=== PATIENT | female | born 1950 | race Caucasian/White ===

== ENCOUNTER 2017-04-09 13:06 | Inpatient (IN) | payer OTHER, MEDICAID ==
[2017-04-09 13:43] VITALS: BMI 15.4
--- NOTE | 2017-04-09 14:19 | DR.GENAD ---
HPI - HPI Comment HPI Comment: PATIENT TREATED OUT PATIENT WITH ANTIBIOTICS, COUGH MED AND STERIODS, GETTING WORSE. USES OXYGEN AT HOME. - Complaint/Symptoms Chief Complaint Doctors Comments: INCREASING SOB THAT IS GETTING WORSE AND FAIL OUT PATIENT THERAPY. Chief Complaint:: NOT BEING ABLE TO BREATH. SINCE THE FIRST OF THE MONTH, HAS SEEN HER PMD AND TREATED BUT STATES SHE IS NOT BETTER. HAS A CONGESTED COUGH Self Treatment fo Chief Complaint: USES HOME O2 AT NIGHT AND WHEN SHE IS SLEEPING - Nurses notes reviewed Nurses Notes Review: Yes - Source History Provided: Patient - Mode of Arrival Mode of Arrival: Ambulatory - Timing Onset of Chief Complaint: 03/19/17 Came on: Gradually - Duration Duration: Constant Duration: Weeks - Severity Severity: Moderate PMH - PMH Past Medical History: Yes Past Medical History: Anxiety, Arthritis, Asthma, CHF, COPD, Depression, Seizures Past Surgical History: Yes Past Surgical History Comment: CATARACTS - Family History History of Family Medical Conditions: Yes Family Medical History: Diabetes Mellitus, Cancer, [place], Coronary Artery Disease, Hypertension - Social History Does patient currently use any type of tobacco product: Yes Type of Tobacco Use: Cigarettes Does any household member use tobacco: No Alcohol Use: None Do you use any recreational Drugs:: No Lives With: Family Lives Where: Home - infectious screening In the last 2 months have you had wt loss of >10#?: NO Have you had fever, night sweats or hemotysis?: No Have you traveled outside the country in the last 6 months?: No Isolation: Standard ROS - Review of Systems Constitutional: Fever, Weakness, Fatigue, Loss of Appetite. negative: Chills Eyes: No Symptoms Reported. negative: Eye Pain, Discharge ENTM: Nose Congestion, Throat Pain. negative: Ear Pain, Nose Discharge Respiratoy: Productive Cough, Short of Breath, Wheezing. negative: Hemoptysis Cardiovascular: Chest Pain Gastrointestinal/Abdominal: Nausea. negative: Constipation, Diarrhea, Vomiting Genitourinary: negative: Dysuria, Frequency, Hematuria Neurological: Headache, Weakness, Dizziness Musculoskeletal: Back Pain, Muscle Pain Integumentary: Change in Color Hematologic/Lymphatic: Easy Bleeding, Easy Bruising Endocrine: No Symptoms Reported All Other Systems: Reviewed and Negative PE - Vital Signs Vitals: Temperature 98.0 F Pulse Rate 86 Respiratory Rate 28 Blood Pressure 96/58 O2 Sat by Pulse Oximetry 92 - General Limitations: No Limitations General Appearance: Alert, In Distress - Head Head Exam: Normal Inspection - Eyes Eye exam: Normal Appearance, PERRL, EOMI. negative: Scleral Icterus, Conjunctival Injection - ENT ENT Exam: Normal Oropharynx, Normal External Ear Exam, Mucous Membranes Moist, TM's Normal Bilaterally External Ear Exam: Normal External Inspection TM/Canal Exam: Bilateral Normal Nose Exam: Normal Nose Exam Mouth Exam: Normal Inspection Throat Exam: Normal Inspection - Neck Neck Exam: Trachea Midline. negative: Tenderness, Meningismus, Lymphadenopathy - Chest Chest Inspection: Symmetric Chest Wall Rise - Respiratory Respiratory Exam: Accessory Muscle Use, Chest Wall Tenderness, Respiratory Distress Respiratory Exam: Bilateral Wheezing, Bilateral Rhonchi, Lower Wheezing, Lower Rhonchi - Cardiovascular Cardiovascular Exam: Regular Rate, Normal Rhythm, Normal Heart Sounds - Abdominal Exam Abdominal Exam: Normal Bowel Sounds, Soft. negative: Tenderness - Extremities Extremities Exam: Normal Inspection - Back Back Exam: Normal Inspection - Neurologic Neurological Exam: Alert, Oriented X3, Normal Gait, Reflexes Normal. negative: Motor Sensory Deficit - Psychiatric Psychiatric Exam: Normal Affect, Normal Mood - Skin Skin Exam: Normal Color MDM - Additional Information Additional Information Obtained From: Family - Differential Diagnosis Differential Diagnosis: PNEUMONIA, COPD EXACERBATION, BRONCHITIS, CHF,CHEST PAIN. Course - Treatment Treatment: SEE ORDERS. - Consultation Consultation Comments: PATIENT DISCUSS WITH DR. BOX. HE WILL ADMIT PATIENT. - Education/Counseling Education/Counseling: Patient, Family, Education Educated On: Treatment, Diagnosis ROR - Labs Reviewed Laboratory Results Reviewed?: Yes Result Diagrams: 04/11/17 05:00 04/11/17 05:00 Laboratory: 04/09/17 14:37 Blood Blood Culture - Preliminary 04/09/17 14:26 Blood Blood Culture - Preliminary WBC 4.4 X10^3/uL (3.6-10.0) 04/11/17 05:00 RBC 3.88 X10^6/uL (3.5-5.4) 04/11/17 05:00 Hgb 12.2 g/dL (12.0-16.0) 04/11/17 05:00 Hct 35.8 % (36.0-47.0) L 04/11/17 05:00 MCV 92.2 fL (80.0-100.0) 04/11/17 05:00 MCH 31.3 pg (27.0-34.0) 04/11/17 05:00 MCHC 34.0 g/dL (33.0-35.0) 04/11/17 05:00 RDW 13.8 % (11.6-16.5) 04/11/17 05:00 Plt Count 243 X10^3/uL (150.0-450.0) 04/11/17 05:00 MPV 7.1 fL (7.4-11.0) L 04/11/17 05:00 Neut % 40.9 % (42.0-75.0) L 04/11/17 05:00 Lymph % 46.5 % (21.0-51.0) 04/11/17 05:00 [place] % 9.5 % (0.0-13.0) 04/11/17 05:00 Eos % 2.1 % (0.9-2.9) 04/11/17 05:00 Baso % 1.0 % (0.2-1.0) 04/11/17 05:00 Neut # 1.8 x10^3/uL (2.2-4.8) L 04/11/17 05:00 Lymph # 2.1 X10^3/uL (1.3-2.9) 04/11/17 05:00 [place] # 0.4 x10^3/uL (0.3-0.8) 04/11/17 05:00 Eos # 0.1 x10^3/uL (0.0-0.2) 04/11/17 05:00 Baso # 0.0 X10^3/uL (0.0-0.1) 04/11/17 05:00 Absolute Nucleated RBC 0.1 /100WBC 04/11/17 05:00 INR Target Range - 04/10/17 04:20 INR 1.20 (0.8-1.3) 04/10/17 04:20 PTT 34.9 SECONDS (22.9-36.5) 04/10/17 04:20 PTT Comment - 04/10/17 04:20 Sodium 140 mmol/L (136-145) 04/11/17 05:00 Corrected Sodium TNP 04/11/17 05:00 Potassium 4.1 mmol/L (3.5-5.1) 04/11/17 05:00 Chloride 105 mmol/L (98-107) 04/11/17 05:00 Carbon Dioxide 29.8 mmol/L (21-32) 04/11/17 05:00 BUN 8 mg/dL (7-18) 04/11/17 05:00 Creatinine 0.39 mg/dL (0.55-1.02) L 04/11/17 05:00 Est GFR (MDRD) Af Amer > 60 (>60) 04/11/17 05:00 Est GFR (MDRD) Non-Af > 60 (>60) 04/11/17 05:00 Glucose 69 mg/dL (65-99) 04/11/17 05:00 Lactic Acid 0.6 mmol/L (0.4-2.0) 04/09/17 14:37 Calcium 8.3 mg/dL (8.5-10.1) L 04/11/17 05:00 Corrected Calcium 9.7 mg/dL (8.5-10.1) 04/11/17 05:00 Magnesium 1.5 mg/dL (1.7-2.9) L 04/10/17 04:20 Total Bilirubin 0.20 mg/dL (0.2-1.0) 04/11/17 05:00 AST 12 Units/L (15-37) L 04/11/17 05:00 ALT 13 Units/L (12-78) 04/11/17 05:00 Alkaline Phosphatase 91 Units/L (46-116) 04/11/17 05:00 Creatine Kinase 35 Units/L (26-192) 04/10/17 04:20 CK-MB (CK-2) 1.4 ng/mL (0-4.0) 04/10/17 04:20 CK/CKMB % Calc 4.0 % (<4) 04/10/17 04:20 Troponin I 0.02 ng/mL (0-1.5) 04/10/17 04:20 C-Reactive Protein 17.90 mg/L (0-3.0) H 04/09/17 14:37 B-Natriuretic Peptide 83.0 pg/mL (0-79) H 04/09/17 14:37 Total Protein 5.9 g/dL (6.4-8.2) L 04/11/17 05:00 Albumin 2.2 g/dL (3.4-5.0) L 04/11/17 05:00 Globulin 3.7 g/dL (2.5-4.5) 04/11/17 05:00 Albumin/Globulin Ratio 0.6 Ratio (1.1-2.1) L 04/11/17 05:00 Triglycerides 65 mg/dL (0-150) 04/10/17 04:20 Cholesterol 100 mg/dL (0-200) 04/10/17 04:20 LDL Cholesterol, Calc 54 mg/dL (0-100) 04/10/17 04:20 HDL Cholesterol 33 mg/dL (40-60) L 04/10/17 04:20 Cholesterol/HDL Ratio 3.0 (0.0-5.0) 04/10/17 04:20 Specimen Type Clean catch urine 04/09/17 15:31 Urine Color Yellow (YELLOW) 04/09/17 15:31 Urine Appearance Clear (CLEAR) 04/09/17 15:31 Urine pH 7.0 (5.0 - 8.0) 04/09/17 15:31 Ur Specific [place] 1.005 (1.000-1.030) 04/09/17 15:31 Urine Protein Negative (NEGATIVE) 04/09/17 15:31 Urine Glucose (UA) Negative (NEGATIVE) 04/09/17 15:31 Urine Ketones Negative (NEGATIVE) 04/09/17 15:31 Urine Occult Blood Negative (NEGATIVE) 04/09/17 15:31 Urine Nitrite Negative (NEGATIVE) 04/09/17 15:31 Urine Bilirubin Negative (NEGATIVE) 04/09/17 15:31 Urine Urobilinogen Normal (NORMAL) 04/09/17 15:31 Ur Leukocyte Esterase 1+ (NEGATIVE) 04/09/17 15:31 Urine RBC None seen /HPF (NEGATIVE) 04/09/17 15:31 Urine WBC Rare /HPF (NEGATIVE) 04/09/17 15:31 Ur Squamous Epith Cells Few /HPF (NEGATIVE) 04/09/17 15:31 Urine Bacteria Trace /HPF (NEGATIVE) 04/09/17 15:31 Ur Culture Indicated? No/not indicated 04/09/17 15:31 - XRAY XRAY Interpreted by: Radiologist XRAY Findings: REPORT DISCUSS WITH PATIENT. - EKG Rhythm: NSR (EKG NOTED) - Diagnosis Discharge Problem: COPD with exacerbation Acute bronchitis Qualifiers: Bronchitis organism: other organism Qualified Code(s): J20.8 - Acute bronchitis due to other specified organisms Chest pain Qualifiers: Chest pain type: intercostal pain Qualified Code(s): R07.82 - Intercostal pain - Discharge Plan Disposition: 09 ADMITTED INPATIENT Condition: Stable - Follow ups/Referrals - Instructions
[2017-04-09 14:52] LABS: BASOPHILS # (AUTO) 0.1 X10^3/uL (0.0-0.1); BASOPHILS % (AUTO) 1.1 % (0.2-1.0); EOSINOPHILS # (AUTO) 0.2 x10^3/uL (0.0-0.2); EOSINOPHILS % (AUTO) 2.8 % (0.9-2.9); HEMATOCRIT 41.2 % (36.0-47.0); HEMOGLOBIN 14.2 g/dL (12.0-16.0); LYMPHOCYTES # (AUTO) 1.9 X10^3/uL (1.3-2.9); LYMPHOCYTES % (AUTO) 34.2 % (21.0-51.0); MEAN CORPUSCULAR HEMOGLOBIN 31.4 pg (27.0-34.0); MEAN CORPUSCULAR HGB CONC 34.4 g/dL (33.0-35.0); MEAN CORPUSCULAR VOLUME 91.3 fL (80.0-100.0); MONOCYTES # (AUTO) 0.4 x10^3/uL (0.3-0.8); MONOCYTES % (AUTO) 7.4 % (0.0-13.0); NEUTROPHILS % (AUTO) 54.5 % (42.0-75.0); PLATELET COUNT 355 X10^3/uL (150.0-450.0); RED BLOOD COUNT 4.51 X10^6/uL (3.5-5.4); RED CELL DISTRIBUTION WIDTH 13.7 % (11.6-16.5); WHITE BLOOD COUNT 5.5 X10^3/uL (3.6-10.0)
[2017-04-09 14:59] LABS: C-REACTIVE PROTEIN 17.9 mg/L (0-3.0)
[2017-04-09 15:08] LABS: BLOOD UREA NITROGEN 8 mg/dL (7-18); CALCIUM 8.9 mg/dL (8.5-10.1); CARBON DIOXIDE 29.7 mmol/L (21-32); CHLORIDE 100 mmol/L (98-107); CREATININE 0.47 mg/dL (0.55-1.02); SODIUM 135 mmol/L (136-145); TROPONIN I < 0.02 ng/mL (0-1.5); eGFR BLACK RACES > 60 (>60); eGFR NON BLACK RACES > 60 (>60)
[2017-04-09 15:09] LABS: LACTIC ACID 0.6 mmol/L (0.4-2.0)
[2017-04-09 15:12] LABS: ALANINE AMINOTRANSFERASE 18 Units/L (12-78); ALBUMIN 3.1 g/dL (3.4-5.0); ALKALINE PHOSPHATASE 118 Units/L (46-116); ASPARTATE AMINO TRANSFERASE 15 Units/L (15-37); CKMB % 4.3 % (<4); COR CA(FOR HYPOALB) 9.6 mg/dL (8.5-10.1); CREATINE KINASE 61 Units/L (26-192); CREATINE KINASE MB 2.6 ng/mL (0-4.0); TOTAL PROTEIN 7.6 g/dL (6.4-8.2)
--- NOTE | 2017-04-09 15:15 | RAD ---
Chest, one view Indication: Chest pain Comparison: None Findings: The heart is mildly enlarged without evidence of congestive failure. Lungs are hyperexpande d with increased bilateral interstitial markings and biapical pleural scarring, compatible with COPD. Mild peribronchial thickening is also present. No focal consolidation, effusion or pneumothorax is i dentified. Osseous thorax is unremarkable. Impression: Mild cardiomegaly without congestive failure. COPD changes with peribronchial thickening, compatible with bronchitis - either acute, chronic or bot h. Reported By:
[2017-04-09 16:04] LABS: BILIRUBIN,URINE NEGATIVE (NEGATIVE); BLOOD/HEMOGLOBIN,URINE NEGATIVE (NEGATIVE); GLUCOSE, URINE NEGATIVE (NEGATIVE); KETONES,URINE NEGATIVE (NEGATIVE); LEUKOCYTE ESTERASE ,URINE 1+ (NEGATIVE); NITRITES,URINE NEGATIVE (NEGATIVE); PROTEIN,URINE NEGATIVE (NEGATIVE); UROBILINOGEN,URINE NORMAL (NORMAL)
[2017-04-09 16:14] LABS: APPEARANCE,URINE CLEAR (CLEAR); COLOR,URINE YELLOW (YELLOW); RBC,URINE NONE SEEN /HPF (NEGATIVE)
[2017-04-09 16:15] LABS: BACTERIA,URINE TRACE /HPF (NEGATIVE); SQUAMOUS EPITHELIAL CELL,UR FEW /HPF (NEGATIVE)
[2017-04-09] MEDS ORDERED: NS 1/2 1000 ML IV 1,000 ML IV ONE (16:52)
[2017-04-09] MEDS: DUONEB 0.5 MG/3 MG NEB SCH ×2 (16:55→20:32)
[2017-04-09] MEDS: NS 1/2 1000 ML IV 1,000 ML IV SCH (16:58)
[2017-04-09] MEDS: LEVAQUIN PREMIX IV 250 MG 250 MG/50 ML BAG IV SCH (16:58)
[2017-04-09] MEDS ORDERED: FORTAZ or TAZICEF INJ 1 GM in NS 50 ML IV + SPIKE MINIBAG* 50 ML IV SCH (17:00)
[2017-04-09 17:22] LABS: CKMB % 3.9 % (<4); CREATINE KINASE 59 Units/L (26-192); CREATINE KINASE MB 2.3 ng/mL (0-4.0); TROPONIN I < 0.02 ng/mL (0-1.5)
[2017-04-09] MEDS: NICODERM PATCH 21 MG/24 HR TD SCH (19:35)
[2017-04-09] MEDS ORDERED: KLONOPIN TAB 0.5 MG PO ONE (21:53)
[2017-04-09] MEDS: TYLENOL 325 MG TAB PO PRN (22:14)
[2017-04-09 22:54] LABS: CKMB % 3.6 % (<4); CREATINE KINASE MB 1.9 ng/mL (0-4.0); TROPONIN I 0.02 ng/mL (0-1.5)
[2017-04-10] MEDS: VIBRAMYCIN 100 MG in D5W 250 ML IV 250 ML IV SCH ×3 (00:52→20:33)
[2017-04-10] MEDS: DUONEB 0.5 MG/3 MG NEB SCH ×6 (01:49→20:39)
[2017-04-10 05:01] LABS: BASOPHILS # (AUTO) 0.1 X10^3/uL (0.0-0.1); BASOPHILS % (AUTO) 1.3 % (0.2-1.0); EOSINOPHILS # (AUTO) 0.1 x10^3/uL (0.0-0.2); EOSINOPHILS % (AUTO) 2.9 % (0.9-2.9); HEMATOCRIT 35.6 % (36.0-47.0); HEMOGLOBIN 12.1 g/dL (12.0-16.0); LYMPHOCYTES # (AUTO) 1.9 X10^3/uL (1.3-2.9); LYMPHOCYTES % (AUTO) 44.7 % (21.0-51.0); MEAN CORPUSCULAR HEMOGLOBIN 31.4 pg (27.0-34.0); MEAN CORPUSCULAR VOLUME 92.2 fL (80.0-100.0); MONOCYTES # (AUTO) 0.4 x10^3/uL (0.3-0.8); MONOCYTES % (AUTO) 8.7 % (0.0-13.0); NEUTROPHILS # (AUTO) 1.8 x10^3/uL (2.2-4.8); NEUTROPHILS % (AUTO) 42.4 % (42.0-75.0); PLATELET COUNT 270 X10^3/uL (150.0-450.0); RED BLOOD COUNT 3.86 X10^6/uL (3.5-5.4); RED CELL DISTRIBUTION WIDTH 13.5 % (11.6-16.5); WHITE BLOOD COUNT 4.2 X10^3/uL (3.6-10.0)
[2017-04-10 05:31] LABS: ALANINE AMINOTRANSFERASE 15 Units/L (12-78); ALBUMIN 2.3 g/dL (3.4-5.0); ALKALINE PHOSPHATASE 90 Units/L (46-116); ASPARTATE AMINO TRANSFERASE 11 Units/L (15-37); BLOOD UREA NITROGEN 6 mg/dL (7-18); CALCIUM 8.4 mg/dL (8.5-10.1); CARBON DIOXIDE 27.7 mmol/L (21-32); CHLORIDE 103 mmol/L (98-107); CHOLESTEROL 100 mg/dL (0-200); COR CA(FOR HYPOALB) 9.8 mg/dL (8.5-10.1); CREATINE KINASE 35 Units/L (26-192); CREATINE KINASE MB 1.4 ng/mL (0-4.0); HDL CHOLESTEROL 33 mg/dL (40-60); MAGNESIUM 1.5 mg/dL (1.7-2.9); SODIUM 138 mmol/L (136-145); TOTAL PROTEIN 5.9 g/dL (6.4-8.2); TRIGLYCERIDES 65 mg/dL (0-150); TROPONIN I 0.02 ng/mL (0-1.5); eGFR BLACK RACES > 60 (>60); eGFR NON BLACK RACES > 60 (>60)
[2017-04-10] MEDS ORDERED: NS 1/2 1000 ML IV 1,000 ML IV ONE ×2 (05:48→17:47)
[2017-04-10] MEDS: NS 1/2 1000 ML IV 1,000 ML IV SCH ×3 (06:10→19:49)
[2017-04-10] MEDS: LEVAQUIN PREMIX IV 250 MG 250 MG/50 ML BAG IV SCH (08:09)
[2017-04-10] MEDS: NICODERM PATCH 21 MG/24 HR TD SCH (08:11)
[2017-04-10] MEDS: TYLENOL 325 MG TAB PO PRN ×2 (08:11→20:40)
[2017-04-10] MEDS ORDERED: PATIENT'S HOME MEDICATION (Sertraline Hcl [Zoloft 25 Mg] 25 MG) PO SCH (10:30)
[2017-04-10] MEDS ORDERED: [UNRECOGNIZED DRUG - OTHER] PO SCH (10:30)
[2017-04-10] MEDS: PULMICORT NEB TX 0.5 MG NEB SCH ×2 (13:01→20:39)
[2017-04-10] MEDS: MYSOLINE PO SCH ×4 (13:38→22:47)
[2017-04-10] MEDS: KLONOPIN TAB 0.5 MG PO PRN (20:38)
[2017-04-10] MEDS: DESYREL PO SCH (20:39)
[2017-04-10] MEDS: PRAVACHOL PO SCH (20:44)
[2017-04-10] MEDS ORDERED: PATIENT'S HOME MEDICATION (Pravastatin Sodium [Pravastatin Sodium] 10 MG) PO SCH (21:00)
[2017-04-10] MEDS ORDERED: PATIENT'S HOME MEDICATION (Trazodone Hcl [Trazodone Hcl] 150 MG) PO SCH (21:00)
[2017-04-10] MEDS: DYLOJECT INJ IVP SCH (21:28)
[2017-04-11] MEDS: DUONEB 0.5 MG/3 MG NEB SCH ×6 (01:21→20:38)
[2017-04-11] MEDS ORDERED: NS 1/2 1000 ML IV 1,000 ML IV ONE (05:40)
[2017-04-11] MEDS: MYSOLINE PO SCH ×3 (05:45→21:12)
[2017-04-11] MEDS: NS 1/2 1000 ML IV 1,000 ML IV SCH ×2 (05:45→08:11)
[2017-04-11 05:47] LABS: EOSINOPHILS # (AUTO) 0.1 x10^3/uL (0.0-0.2); EOSINOPHILS % (AUTO) 2.1 % (0.9-2.9); HEMATOCRIT 35.8 % (36.0-47.0); HEMOGLOBIN 12.2 g/dL (12.0-16.0); LYMPHOCYTES # (AUTO) 2.1 X10^3/uL (1.3-2.9); LYMPHOCYTES % (AUTO) 46.5 % (21.0-51.0); MEAN CORPUSCULAR HEMOGLOBIN 31.3 pg (27.0-34.0); MEAN CORPUSCULAR VOLUME 92.2 fL (80.0-100.0); MEAN PLATELET VOLUME 7.1 fL (7.4-11.0); MONOCYTES # (AUTO) 0.4 x10^3/uL (0.3-0.8); MONOCYTES % (AUTO) 9.5 % (0.0-13.0); NEUTROPHILS # (AUTO) 1.8 x10^3/uL (2.2-4.8); NEUTROPHILS % (AUTO) 40.9 % (42.0-75.0); PLATELET COUNT 243 X10^3/uL (150.0-450.0); RED BLOOD COUNT 3.88 X10^6/uL (3.5-5.4); RED CELL DISTRIBUTION WIDTH 13.8 % (11.6-16.5); WHITE BLOOD COUNT 4.4 X10^3/uL (3.6-10.0)
[2017-04-11 05:51] LABS: ALANINE AMINOTRANSFERASE 13 Units/L (12-78); ALBUMIN 2.2 g/dL (3.4-5.0); ALKALINE PHOSPHATASE 91 Units/L (46-116); ASPARTATE AMINO TRANSFERASE 12 Units/L (15-37); BLOOD UREA NITROGEN 8 mg/dL (7-18); CALCIUM 8.3 mg/dL (8.5-10.1); CARBON DIOXIDE 29.8 mmol/L (21-32); CHLORIDE 105 mmol/L (98-107); COR CA(FOR HYPOALB) 9.7 mg/dL (8.5-10.1); CREATININE 0.39 mg/dL (0.55-1.02); SODIUM 140 mmol/L (136-145); TOTAL PROTEIN 5.9 g/dL (6.4-8.2); eGFR BLACK RACES > 60 (>60); eGFR NON BLACK RACES > 60 (>60)
[2017-04-11] MEDS: VIBRAMYCIN 100 MG in D5W 250 ML IV 250 ML IV SCH ×2 (08:04→21:14)
[2017-04-11] MEDS: NICODERM PATCH 21 MG/24 HR TD SCH (08:05)
[2017-04-11] MEDS: ZOLOFT PO SCH (08:06)
[2017-04-11] MEDS: ECOTRIN TAB 325 MG PO SCH (08:07)
[2017-04-11] MEDS: LEVAQUIN PREMIX IV 250 MG 250 MG/50 ML BAG IV SCH (08:10)
[2017-04-11] MEDS: PULMICORT NEB TX 0.5 MG NEB SCH ×2 (08:50→20:38)
[2017-04-11] MEDS: DYLOJECT INJ IVP SCH (09:19)
[2017-04-11] MEDS: TYLENOL 325 MG TAB PO PRN ×2 (09:58→21:16)
[2017-04-11] MEDS: DESYREL PO SCH (21:12)
[2017-04-11] MEDS: PRAVACHOL PO SCH (21:12)
[2017-04-11] MEDS: KLONOPIN TAB 0.5 MG PO PRN (21:16)
[2017-04-12] MEDS: DUONEB 0.5 MG/3 MG NEB SCH ×3 (01:38→08:54)
[2017-04-12 04:38] LABS: EOSINOPHILS # (AUTO) 0.1 x10^3/uL (0.0-0.2); EOSINOPHILS % (AUTO) 2.9 % (0.9-2.9); HEMATOCRIT 35.5 % (36.0-47.0); HEMOGLOBIN 12.1 g/dL (12.0-16.0); LYMPHOCYTES % (AUTO) 42.6 % (21.0-51.0); MEAN CORPUSCULAR HEMOGLOBIN 31.6 pg (27.0-34.0); MEAN CORPUSCULAR HGB CONC 33.9 g/dL (33.0-35.0); MEAN CORPUSCULAR VOLUME 93.1 fL (80.0-100.0); MEAN PLATELET VOLUME 7.3 fL (7.4-11.0); MONOCYTES # (AUTO) 0.5 x10^3/uL (0.3-0.8); MONOCYTES % (AUTO) 9.6 % (0.0-13.0); NEUTROPHILS # (AUTO) 2.1 x10^3/uL (2.2-4.8); NEUTROPHILS % (AUTO) 43.9 % (42.0-75.0); PLATELET COUNT 261 X10^3/uL (150.0-450.0); RED BLOOD COUNT 3.82 X10^6/uL (3.5-5.4); RED CELL DISTRIBUTION WIDTH 13.6 % (11.6-16.5); WHITE BLOOD COUNT 4.7 X10^3/uL (3.6-10.0)
[2017-04-12 04:45] LABS: ALANINE AMINOTRANSFERASE 13 Units/L (12-78); ALBUMIN 2.3 g/dL (3.4-5.0); ALKALINE PHOSPHATASE 94 Units/L (46-116); ASPARTATE AMINO TRANSFERASE 16 Units/L (15-37); BLOOD UREA NITROGEN 10 mg/dL (7-18); CALCIUM 8.3 mg/dL (8.5-10.1); CARBON DIOXIDE 31.1 mmol/L (21-32); CHLORIDE 105 mmol/L (98-107); COR CA(FOR HYPOALB) 9.7 mg/dL (8.5-10.1); CREATININE 0.47 mg/dL (0.55-1.02); SODIUM 141 mmol/L (136-145); TOTAL PROTEIN 5.9 g/dL (6.4-8.2); eGFR BLACK RACES > 60 (>60); eGFR NON BLACK RACES > 60 (>60)
[2017-04-12] MEDS: MYSOLINE PO SCH (05:42)
[2017-04-12] MEDS ORDERED: NS 1/2 1000 ML IV 1,000 ML IV ONE (05:44)
[2017-04-12] MEDS: NS 1/2 1000 ML IV 1,000 ML IV SCH (05:45)
[2017-04-12] MEDS: TYLENOL 325 MG TAB PO PRN (05:45)
--- NOTE | 2017-04-12 08:13 | RAD ---
Chest, one view Indication: COPD, shortness of breath Comparison: April 09, 2017 Findings: There is stable mild cardiomegaly without evidence of congestive failure. The lungs are aga in hyperexpanded with unchanged increased bilateral interstitial markings, compatible with COPD. No f ocal consolidation, effusion or pneumothorax is identified. Osseous thorax is unremarkable. Impression: Stable cardiomegaly and COPD changes without acute chest process. Reported By:
[2017-04-12] MEDS: PULMICORT NEB TX 0.5 MG NEB SCH (08:55)
[2017-04-12] MEDS: LEVAQUIN PREMIX IV 250 MG 250 MG/50 ML BAG IV SCH (08:57)
[2017-04-12] MEDS: NICODERM PATCH 21 MG/24 HR TD SCH (09:00)
[2017-04-12] MEDS: ECOTRIN TAB 325 MG PO SCH (09:02)
[2017-04-12] MEDS: ZOLOFT PO SCH (09:02)
[2017-04-12] MEDS: KLONOPIN TAB 0.5 MG PO PRN (09:06)
[2017-04-12] MEDS: VIBRAMYCIN 100 MG in D5W 250 ML IV 250 ML IV SCH (09:35)
[2017-04-12 11:11] VITALS: BP 123/58
== END 2017-04-12 12:33 | disposition home or self-care (01) | DRG 202 ==
LOC: ER 13:45 → MED/SURG 16:27
PROVIDERS: ADMIT Internal Medicine; ATTEND Internal Medicine
DX: J20.8 Acute bronchitis due to other specified organisms (principal); J44.1 Chronic obstructive pulmonary disease with (acute) exacerbation; R06.00 Dyspnea, unspecified; R07.82 Intercostal pain; Z99.81 Dependence on supplemental oxygen; F41.8 Other specified anxiety disorders; F32.89 Other specified depressive episodes; E78.2 Mixed hyperlipidemia; G20 Parkinson's disease; R06.02 Shortness of breath; J43.8 Other emphysema; B95.2 Enterococcus as the cause of diseases classified elsewhere
CPT/HCPCS: 36415; 71010; 80053; 80061; 81001; 82550; 82553; 83605; 83735; 83880; 84484; 85025; 85610; 85730; 86140; 87040; 87070; 87077; 87186; 87205; 93005; 93010; 94640; 94669; 94760; 96365; 96374; 96375; 99284; A4222; J1956; J3490; J7620; J7626

== ENCOUNTER 2017-07-04 18:59 | Observation (INO) | payer OTHER, MEDICAID ==
[2017-07-04] MEDS ORDERED: NARCAN INJ IVP ONE ×2 (19:00→19:09)
[2017-07-04] MEDS ORDERED: NARCAN INJ ONE ×2 (19:01→19:09)
--- NOTE | 2017-07-04 19:20 | DR.GENAD ---
HPI - HPI Comment HPI Comment: PATIENT WAS ON HER PORCH WHEN SHE FELL ON HER FACE AND SUSTAIN LACERATION TO LT UPPER LIP ABD WAS UNRESPONSIVE. PATIENT SLEEPY AND DROWSY IN ED. AROUSABLE. NO HISTORY OF SEIZURES. NO FEVER OR FLUE. HAVE COPD. - Complaint/Symptoms Chief Complaint Doctors Comments: AMS/UNRESPONSICE. - Nurses notes reviewed Nurses Notes Review: Yes - Source History Provided: Patient, Family Member - Mode of Arrival Mode of Arrival: Stretcher - Timing Came on: Suddenly - Duration Duration: Constant Duration: Hours - Severity Severity: Moderate PMH - PMH Past Medical History: Anxiety, Arthritis, Asthma, CHF, COPD, Depression, Seizures Past Surgical History: Yes - Family History Family Medical History: Diabetes Mellitus, Cancer, [place], Coronary Artery Disease, Hypertension - Social History Do you use any recreational Drugs:: No ROS - Review of Systems Constitutional: Weakness, Fatigue. negative: Chills, Fever Eyes: negative: Eye Pain, Discharge ENTM: Mouth Pain (LIP LACERATION LEFT UPPER LIP.), Throat Pain. negative: Ear Pain, Nose Discharge, Nose Congestion Respiratoy: No Symptoms Reported, Productive Cough, Short of Breath, Wheezing Cardiovascular: Chest Pain Gastrointestinal/Abdominal: No Symptoms Reported Genitourinary: No Symptoms Reported Neurological: Headache, Weakness, Dizziness Musculoskeletal: Joint Pain, Joint Swelling, Muscle Pain Integumentary: Wound (LIP LAC 2CM) Hematologic/Lymphatic: Easy Bleeding, Easy Bruising Endocrine: No Symptoms Reported Unable to Obtain Due To: Altered mental status PE - Vital Signs Vitals: Temperature 98.2 F Pulse Rate [Apical] 63 Pulse Rate 81 Respiratory Rate 15 Blood Pressure [Left Arm] 112/59 Blood Pressure 122/62 O2 Sat by Pulse Oximetry 97 - General Limitations: Altered Mental Status General Appearance: Other (SLEEPY BUT AROUSABLE ) - Head Head Exam: Normal Inspection - Eyes Eye exam: Normal Appearance - ENT ENT Exam: Normal External Ear Exam External Ear Exam: Normal External Inspection TM/Canal Exam: Bilateral Normal Nose Exam: Normal Nose Exam Mouth Exam: Normal Inspection Throat Exam: Normal Inspection - Neck Neck Exam: Normal Inspection - Chest Chest Inspection: Symmetric Chest Wall Rise - Respiratory Respiratory Exam: Normal Lung Sounds Bilat Respiratory Exam: Bilateral Wheezing, Bilateral Rhonchi, Upper Rhonchi, Lower Wheezing, Lower Rhonchi - Cardiovascular Cardiovascular Exam: Regular Rate, Normal Rhythm, Normal Heart Sounds - Abdominal Exam Abdominal Exam: Normal Bowel Sounds, Soft. negative: Tenderness - Extremities Extremities Exam: negative: Edema - Back Back Exam: Paraspinal Tenderness - Neurologic Neurological Exam: CN II-XII Intact, Other (AROUSABLE). negative: Motor Sensory Deficit - Psychiatric Psychiatric Exam: Other (SLEEPY) - Skin Skin Exam: Erythema (3CM LACERATION LEFT UPPER LIP.) MDM - Additional Information Additional Information Obtained From: Family - Differential Diagnosis Differential Diagnosis: AMS, CVA, SEIZURE, UTI, CLOSE HEAD INJURY Course - Treatment Treatment: SEE ORDERS. NARCAN IN ED, PATIENT SLIGHTLY MORE ALERT. STILL SLEEPY. - Reevaluation 1st: Improved - Education/Counseling Education/Counseling: Patient, Family, Education Educated On: Treatment, Diagnosis, Needs for Follow Up ROR - Labs Reviewed Laboratory Results Reviewed?: Yes Result Diagrams: 07/05/17 03:50 07/05/17 03:50 Laboratory: WBC 6.0 X10^3/uL (3.6-10.0) 07/04/17 19:15 RBC 4.00 X10^6/uL (3.5-5.4) 07/04/17 19:15 Hgb 12.4 g/dL (12.0-16.0) 07/04/17 19:15 Hct 36.2 % (36.0-47.0) 07/04/17 19:15 MCV 90.5 fL (80.0-100.0) 07/04/17 19:15 MCH 30.9 pg (27.0-34.0) 07/04/17 19:15 MCHC 34.2 g/dL (33.0-35.0) 07/04/17 19:15 RDW 14.6 % (11.6-16.5) 07/04/17 19:15 Plt Count 177 X10^3/uL (150.0-450.0) 07/04/17 19:15 MPV 7.5 fL (7.4-11.0) 07/04/17 19:15 Neut % 71.6 % (42.0-75.0) 07/04/17 19:15 Lymph % 21.3 % (21.0-51.0) 07/04/17 19:15 [place] % 4.6 % (0.0-13.0) 07/04/17 19:15 Eos % 1.9 % (0.9-2.9) 07/04/17 19:15 Baso % 0.6 % (0.2-1.0) 07/04/17 19:15 Neut # 4.3 x10^3/uL (2.2-4.8) 07/04/17 19:15 Lymph # 1.3 X10^3/uL (1.3-2.9) 07/04/17 19:15 [place] # 0.3 x10^3/uL (0.3-0.8) 07/04/17 19:15 Eos # 0.1 x10^3/uL (0.0-0.2) 07/04/17 19:15 Baso # 0.0 X10^3/uL (0.0-0.1) 07/04/17 19:15 Absolute Nucleated RBC 0.0 /100WBC 07/04/17 19:15 INR Target Range - 07/04/17 19:15 INR 1.13 (0.8-1.3) 07/04/17 19:15 PTT 29.6 SECONDS (22.9-36.5) 07/04/17 19:15 PTT Comment - 07/04/17 19:15 Sodium 138 mmol/L (136-145) 07/04/17 19:15 Corrected Sodium TNP 07/04/17 19:15 Potassium 3.6 mmol/L (3.5-5.1) 07/04/17 19:15 Chloride 101 mmol/L (98-107) 07/04/17 19:15 Carbon Dioxide 28.7 mmol/L (21-32) 07/04/17 19:15 BUN 6 mg/dL (7-18) L 07/04/17 19:15 Creatinine 0.36 mg/dL (0.55-1.02) L 07/04/17 19:15 Est GFR (MDRD) Af Amer > 60 (>60) 07/04/17 19:15 Est GFR (MDRD) Non-Af > 60 (>60) 07/04/17 19:15 Glucose 84 mg/dL (65-99) 07/04/17 19:15 Calcium 8.0 mg/dL (8.5-10.1) L 07/04/17 19:15 Corrected Calcium 8.8 mg/dL (8.5-10.1) 07/04/17 19:15 Total Bilirubin 0.20 mg/dL (0.2-1.0) 07/04/17 19:15 AST 20 Units/L (15-37) 07/04/17 19:15 ALT 18 Units/L (12-78) 07/04/17 19:15 Alkaline Phosphatase 107 Units/L (46-116) 07/04/17 19:15 Creatine Kinase 96 Units/L (26-192) 07/04/17 19:15 CK-MB (CK-2) 2.0 ng/mL (0-4.0) 07/04/17 19:15 CK/CKMB % Calc 2.1 % (<4) 07/04/17 19:15 Troponin I < 0.02 ng/mL (0-1.5) 07/04/17 19:15 Total Protein 6.5 g/dL (6.4-8.2) 07/04/17 19:15 Albumin 3.0 g/dL (3.4-5.0) L 07/04/17 19:15 Globulin 3.5 g/dL (2.5-4.5) 07/04/17 19:15 Albumin/Globulin Ratio 0.9 Ratio (1.1-2.1) L 07/04/17 19:15 Specimen Type Clean catch urine 07/04/17 19:20 Urine Color Yellow (YELLOW) 07/04/17 19:20 Urine Appearance Slightly hazy (CLEAR) 07/04/17 19:20 Urine pH 6.5 (5.0 - 8.0) 07/04/17 19:20 Ur Specific [place] 1.010 (1.000-1.030) 07/04/17 19:20 Urine Protein Negative (NEGATIVE) 07/04/17 19:20 Urine Glucose (UA) Negative (NEGATIVE) 07/04/17 19:20 Urine Ketones 1+ (NEGATIVE) 07/04/17 19:20 Urine Occult Blood 2+ (NEGATIVE) 07/04/17 19:20 Urine Nitrite Negative (NEGATIVE) 07/04/17 19:20 Urine Bilirubin Negative (NEGATIVE) 07/04/17 19:20 Urine Urobilinogen Normal (NORMAL) 07/04/17 19:20 Ur Leukocyte Esterase 1+ (NEGATIVE) 07/04/17 19:20 Urine RBC 0-3 /HPF (NEGATIVE) 07/04/17 19:20 Urine WBC 0-3 /HPF (NEGATIVE) 07/04/17 19:20 Ur Squamous Epith Cells Few /HPF (NEGATIVE) 07/04/17 19:20 Urine Bacteria Negative /HPF (NEGATIVE) 07/04/17 19:20 Ur Culture Indicated? No/not indicated 07/04/17 19:20 Urine Opiates Screen Positive (NEG=<300) A 07/04/17 19:20 Urine Methadone Screen Negative (NEG=<300) 07/04/17 19:20 Ur Barbiturates Screen Positive (NEG=<200) A 07/04/17 19:20 Ur Phencyclidine Scrn Negative (NEG=<25) 07/04/17 19:20 Ur Amphetamines Screen Negative (NEG=<1000) 07/04/17 19:20 U Benzodiazepines Scrn Negative (NEG=<200) 07/04/17 19:20 Urine Cocaine Screen Negative (NEG=<300) 07/04/17 19:20 U Marijuana (THC) Screen Negative (NEG=<50) 07/04/17 19:20 - XRAY XRAY Interpreted by: Radiologist XRAY Findings: REPORT DISCUSS WITH FAMILY. - EKG Rhythm: NSR (EKG NOTED) Procedures - Laceration/Wound Repair Left Face Wound Length (cm): 3 Wound's Depth, Shape: Irregular Wound Explored: clean Betadine Prep?: No (PEROXIDE) Anesthesia: 1% Lidocaine Wound Debrided: minimal Wound Repaired With: sutures Suture Size/Type: 5:0, [place] Number of Sutures: 7 Layer Closure?: No Sterile Dressing Applied?: No Splint Applied?: No Sling Applied?: No - Diagnosis Discharge Problem: COPD with exacerbation Mental status alteration Qualifiers: Altered mental status type: transient alteration of awareness Qualified Code(s) : R40.4 - Transient alteration of awareness Pneumonia Qualifiers: Pneumonia type: due to unspecified organism Laterality: right Lung location: upper lobe of lung Qualified Code(s): J18.1 - Lobar pneumonia, unspecified organism Chest pain Qualifiers: Chest pain type: precordial pain Qualified Code(s): R07.2 - Precordial pain Lip laceration Qualifiers: Encounter type: initial encounter Qualified Code(s): S01.511A - Laceration without foreign body of lip, initial encounter - Discharge Plan Disposition: ADMITTED INPATIENT Condition: Stable - Follow ups/Referrals - Instructions
[2017-07-04 19:35] LABS: BASOPHILS % (AUTO) 0.6 % (0.2-1.0); EOSINOPHILS # (AUTO) 0.1 x10^3/uL (0.0-0.2); EOSINOPHILS % (AUTO) 1.9 % (0.9-2.9); HEMATOCRIT 36.2 % (36.0-47.0); HEMOGLOBIN 12.4 g/dL (12.0-16.0); LYMPHOCYTES # (AUTO) 1.3 X10^3/uL (1.3-2.9); LYMPHOCYTES % (AUTO) 21.3 % (21.0-51.0); MEAN CORPUSCULAR HEMOGLOBIN 30.9 pg (27.0-34.0); MEAN CORPUSCULAR HGB CONC 34.2 g/dL (33.0-35.0); MEAN CORPUSCULAR VOLUME 90.5 fL (80.0-100.0); MEAN PLATELET VOLUME 7.5 fL (7.4-11.0); MONOCYTES # (AUTO) 0.3 x10^3/uL (0.3-0.8); MONOCYTES % (AUTO) 4.6 % (0.0-13.0); NEUTROPHILS # (AUTO) 4.3 x10^3/uL (2.2-4.8); NEUTROPHILS % (AUTO) 71.6 % (42.0-75.0); PLATELET COUNT 177 X10^3/uL (150.0-450.0); RED CELL DISTRIBUTION WIDTH 14.6 % (11.6-16.5)
[2017-07-04 19:52] LABS: BLOOD UREA NITROGEN 6 mg/dL (7-18); CARBON DIOXIDE 28.7 mmol/L (21-32); CHLORIDE 101 mmol/L (98-107); CREATININE 0.36 mg/dL (0.55-1.02); SODIUM 138 mmol/L (136-145); TROPONIN I < 0.02 ng/mL (0-1.5); eGFR BLACK RACES > 60 (>60); eGFR NON BLACK RACES > 60 (>60)
[2017-07-04 19:56] LABS: ALANINE AMINOTRANSFERASE 18 Units/L (12-78); ALKALINE PHOSPHATASE 107 Units/L (46-116); ASPARTATE AMINO TRANSFERASE 20 Units/L (15-37); CKMB % 2.1 % (<4); COR CA(FOR HYPOALB) 8.8 mg/dL (8.5-10.1); CREATINE KINASE 96 Units/L (26-192); TOTAL PROTEIN 6.5 g/dL (6.4-8.2)
[2017-07-04 20:22] LABS: BILIRUBIN,URINE NEGATIVE (NEGATIVE); BLOOD/HEMOGLOBIN,URINE 2+ (NEGATIVE); GLUCOSE, URINE NEGATIVE (NEGATIVE); KETONES,URINE 1+ (NEGATIVE); LEUKOCYTE ESTERASE ,URINE 1+ (NEGATIVE); NITRITES,URINE NEGATIVE (NEGATIVE); PH,URINE 6.5 (5.0 - 8.0); PROTEIN,URINE NEGATIVE (NEGATIVE); UROBILINOGEN,URINE NORMAL (NORMAL)
[2017-07-04 20:37] LABS: APPEARANCE,URINE SLIGHTLY HAZY (CLEAR); BACTERIA,URINE NEGATIVE /HPF (NEGATIVE); COLOR,URINE YELLOW (YELLOW); RBC,URINE 0-3 /HPF (NEGATIVE); SQUAMOUS EPITHELIAL CELL,UR FEW /HPF (NEGATIVE)
--- NOTE | 2017-07-04 21:07 | CT ---
HISTORY: Unresponsive, possible drug overdose Study: CT brain without contrast Comparison: None Technique: Multiple axial images of the brain were obtained from the skull base to the vertex without administra tion of IV contrast. Findings: Imaging of the brain demonstrates no intracranial hemorrhage, mass effect, or midline shift. No extra -axial fluid collection is identified. There is no CT evidence to suggest acute or early subacute inf arct. Global atrophy is noted. There are low attenuating foci within the periventricular and deep whi te matter, findings suggesting chronic small vessel disease. There is focal encephalomalacia within t he medial right occipital lobe, possibly reflecting sequelae of prior remote infarct. The basilar cis terns are patent. The bony structures are intact. IMPRESSION: 1. No acute intracranial process evident. Chronic changes as detailed above. Reported By:
[2017-07-04] MEDS ORDERED: TUSSIONEX PENNKINETIC SUSP PO PRN (22:49)
[2017-07-04] MEDS ORDERED: VIBRAMYCIN 100 MG in D5W 250 ML IV 250 ML IV SCH (23:00)
--- NOTE | 2017-07-04 23:28 | RAD ---
AP Chest Indication: Unresponsive Comparison: 04/12/2017 Findings: The trachea is midline. The cardiac silhouette is mildly enlarged, unchanged. Chronic interstitial lung changes are noted with scarring and fibrotic change within the right greater than left lung apic es. No focal airspace opacity, pleural effusion or pneumothorax. The bony thorax is unremarkable. IMPRESSION: Chronic interstitial changes and bilateral apical fibrotic change and scarring without acute airspace disease or CHF. Stable cardiomegaly. Reported By:
[2017-07-04] MEDS ORDERED: NS 250 ML IV 250 ML IV ONE (23:37)
[2017-07-04] MEDS ORDERED: ZITHROMAX INJ 500 MG VIAL IV ONE (23:37)
[2017-07-05 00:04] LABS: C-REACTIVE PROTEIN 8.1 mg/L (0-3.0)
[2017-07-05] MEDS: NS 1000 ML 1,000 ML IV SCH ×2 (00:11→13:01)
[2017-07-05] MEDS ORDERED: SALINE 3% 15 ML NEB TX NEB ONE (00:15)
[2017-07-05] MEDS: DUONEB 0.5 MG/3 MG NEB SCH ×5 (00:38→12:20)
[2017-07-05 00:49] LABS: LACTIC ACID 1.3 mmol/L (0.4-2.0)
[2017-07-05 01:12] VITALS: BMI 17.6
[2017-07-05] MEDS ORDERED: XYLOCAINE 1 % (PLAIN) ONE (03:12)
[2017-07-05] MEDS ORDERED: XYLOCAINE 2 % (PLAIN) ONE (03:12)
[2017-07-05] MEDS ORDERED: HYDROGEN PEROXIDE 3% ONE (03:25)
[2017-07-05 06:19] LABS: BASOPHILS # (AUTO) 0.1 X10^3/uL (0.0-0.1); BASOPHILS % (AUTO) 0.8 % (0.2-1.0); EOSINOPHILS # (AUTO) 0.1 x10^3/uL (0.0-0.2); EOSINOPHILS % (AUTO) 1.6 % (0.9-2.9); HEMATOCRIT 40.2 % (36.0-47.0); HEMOGLOBIN 13.6 g/dL (12.0-16.0); LYMPHOCYTES # (AUTO) 1.8 X10^3/uL (1.3-2.9); LYMPHOCYTES % (AUTO) 28.7 % (21.0-51.0); MEAN CORPUSCULAR VOLUME 91.4 fL (80.0-100.0); MEAN PLATELET VOLUME 8.4 fL (7.4-11.0); MONOCYTES # (AUTO) 0.4 x10^3/uL (0.3-0.8); MONOCYTES % (AUTO) 6.9 % (0.0-13.0); NEUTROPHILS # (AUTO) 3.9 x10^3/uL (2.2-4.8); PLATELET COUNT 173 X10^3/uL (150.0-450.0); RED BLOOD COUNT 4.39 X10^6/uL (3.5-5.4); RED CELL DISTRIBUTION WIDTH 14.6 % (11.6-16.5); WHITE BLOOD COUNT 6.3 X10^3/uL (3.6-10.0)
[2017-07-05 06:31] LABS: ALANINE AMINOTRANSFERASE 15 Units/L (12-78); ALBUMIN 2.7 g/dL (3.4-5.0); ALKALINE PHOSPHATASE 106 Units/L (46-116); ASPARTATE AMINO TRANSFERASE 16 Units/L (15-37); BLOOD UREA NITROGEN 5 mg/dL (7-18); CALCIUM 8.1 mg/dL (8.5-10.1); CARBON DIOXIDE 29.9 mmol/L (21-32); CHLORIDE 106 mmol/L (98-107); COR CA(FOR HYPOALB) 9.1 mg/dL (8.5-10.1); CREATININE 0.46 mg/dL (0.55-1.02); SODIUM 143 mmol/L (136-145); TOTAL PROTEIN 6.2 g/dL (6.4-8.2); eGFR BLACK RACES > 60 (>60); eGFR NON BLACK RACES > 60 (>60)
[2017-07-05] MEDS ORDERED: VIBRAMYCIN 100 MG in NS 100 ML IV + SPIKE MINIBAG* 100 ML IV SCH (09:00)
[2017-07-05] MEDS ORDERED: PATIENT'S HOME MEDICATION (Sertraline Hcl [Zoloft 25 Mg] 25 MG) PO SCH (09:00)
[2017-07-05] MEDS ORDERED: ZOFRAN TAB 4 MG PO SCH (09:00)
[2017-07-05] MEDS ORDERED: FLUTICASONE SALMETEROL IN SCH (09:00)
[2017-07-05] MEDS ORDERED: IPRATROPIUM INH SCH (09:00)
[2017-07-05] MEDS ORDERED: ASPIRIN 81 MG CHEWTAB PO SCH (09:00)
[2017-07-05] MEDS ORDERED: [UNRECOGNIZED DRUG - OTHER] INH SCH (09:00)
[2017-07-05] MEDS ORDERED: [UNRECOGNIZED DRUG - OTHER] PO SCH (09:00)
[2017-07-05] MEDS ORDERED: ALBUTEROL SULFATE INH SCH (09:00)
[2017-07-05] MEDS ORDERED: MIRAPEX TAB 0.25 MG PO SCH (09:00)
[2017-07-05] MEDS: ROBITUSSIN DM PO SCH ×2 (09:06→13:01)
[2017-07-05] MEDS ORDERED: ZOLOFT PO SCH (10:00)
[2017-07-05] MEDS ORDERED: ASPIRIN PO SCH (10:00)
[2017-07-05 13:03] VITALS: BP 146/70
[2017-07-05] MEDS ORDERED: ZITHROMAX INJ 500 MG VIAL 500 MG in NS 250 ML IV 250 ML IV SCH (18:00)
[2017-07-05] MEDS ORDERED: DESYREL PO SCH (21:00)
[2017-07-05] MEDS ORDERED: PRAVACHOL PO SCH (21:00)
[2017-07-05] MEDS ORDERED: PATIENT'S HOME MEDICATION (Pravastatin Sodium [Pravastatin Sodium] 10 MG) PO SCH (21:00)
[2017-07-05] MEDS ORDERED: PATIENT'S HOME MEDICATION (Trazodone Hcl [Trazodone Hcl] 150 MG) PO SCH (21:00)
== END 2017-07-05 13:00 | disposition home or self-care (01) | DRG 876 ==
LOC: ER 18:59 → ICU 22:44
PROVIDERS: ADMIT Obstetrics & Gynecology Obstetrics; ATTEND Obstetrics & Gynecology Obstetrics
PROC: 0WQ2XZZ Repair Face, External Approach (ICD-10-PCS; principal; 2017-07-04)
DX: R40.4 Transient alteration of awareness (principal); R07.2 Precordial pain; S01.511A Laceration without foreign body of lip, initial encounter; R94.31 Abnormal electrocardiogram [ECG] [EKG]; B96.5 Pseudomonas (aeruginosa) (mallei) (pseudomallei) as the cause of diseases classified elsewhere; F11.90 Opioid use, unspecified, uncomplicated; F15.90 Other stimulant use, unspecified, uncomplicated; W19.XXXA Unspecified fall, initial encounter
CPT/HCPCS: 12013; 36415; 70450; 71010; 80053; 80307; 81001; 82550; 82553; 83605; 84484; 85025; 85610; 85730; 86140; 87040; 87070; 87077; 87186; 87205; 93005; 93010; 94640; 96365; 96374; 96375; 99284; A4222; S0181; G0378; G0434; J0456; J2001; J2310; J3490; J7620

== ENCOUNTER 2017-07-18 09:29 | Emergency (ER) | payer OTHER, MEDICAID ==
[2017-07-18 09:45] VITALS: BP 139/67; BMI 18.9
[2017-07-18] MEDS ORDERED: NEOSPORIN OINT TOP ONE (10:15)
[2017-07-18] MEDS ORDERED: NEOSPORIN OINT ONE (10:16)
--- NOTE | 2017-07-18 10:16 | DR.GENAD ---
HPI - Complaint/Symptoms Chief Complaint Doctors Comments: Suture removal from upper lip placed on . Chief Complaint:: "I've got these stiches in my lip that have been in since and need to come out and my right leg has been hurting and i think it's infected." Self Treatment fo Chief Complaint: Has been putting triple antibiotic ointment on leg three times daily - Source History Provided: Patient - Mode of Arrival Mode of Arrival: Ambulatory - Timing Onset of Chief Complaint: 07/09/17 PMH - PMH Past Medical History: Yes Past Medical History: Anxiety, Arthritis, Asthma, CHF, COPD, Depression, Seizures Past Surgical History: Yes Surgical History: Unknown, Other Past Surgical History Comment: cataract - Family History History of Family Medical Conditions: Yes Family Medical History: Diabetes Mellitus, Heart Failure - Social History Does patient currently use any type of tobacco product: Yes Have you used tobacco products in the last 12 months: Yes Type of Tobacco Use: Cigarettes Alcohol Use: None Do you use any recreational Drugs:: No Lives With: Family Lives Where: Home - infectious screening Have you traveled outside the country in the last 6 months?: No ROS - Review of Systems Constitutional: No Symptoms Reported Eyes: No Symptoms Reported Respiratoy: No Symptoms Reported Cardiovascular: No Symptoms Reported Gastrointestinal/Abdominal: No Symptoms Reported Genitourinary: No Symptoms Reported Neurological: No Symptoms Reported Musculoskeletal: Leg (abrasion of right lower extremity occured on 07/09/17) Integumentary: Lesions (abrasion of right later lower extremity) Hematologic/Lymphatic: No Symptoms Reported Endocrine: No Symptoms Reported Psychiatric: No Symptoms Reported All Other Systems: Reviewed and Negative PE - Vital Signs Vitals: Temperature 98.6 F Pulse Rate 96 Respiratory Rate 20 Blood Pressure [Right Arm] 146/70 Blood Pressure [Left Arm] 112/59 Blood Pressure 139/67 O2 Sat by Pulse Oximetry 71 - General General Appearance: Alert, In No Apparent Distress - Head Head Exam: Normal Inspection, Atraumatic - Eyes Eye exam: Normal Appearance, PERRL, EOMI - ENT ENT Exam: Normal Exam, Other (rupper inner lip with 4 non absorable sutures) External Ear Exam: Normal External Inspection TM/Canal Exam: Bilateral Normal Nose Exam: Normal Nose Exam Mouth Exam: Normal Inspection Throat Exam: Normal Inspection - Neck Neck Exam: Normal Inspection - Chest Chest Inspection: Normal Inspection - Respiratory Respiratory Exam: Normal Lung Sounds Bilat Respiratory Exam: Bilateral Clear to Auscultation - Cardiovascular Cardiovascular Exam: Regular Rate, Normal Rhythm - Abdominal Exam Abdominal Exam: Normal Inspection, Normal Bowel Sounds Abdominal Tenderness: negative: RUQ, RLQ, LUQ, LLQ, Epigastrium, Suprapubic, Diffuse, Mild, Moderate, Severe, Other - Extremities Extremities Exam: Other (right mid lateral lower extremity with a 10 cm superficial laceration) - Back Back Exam: Normal Inspection, Full ROM - Neurologic Neurological Exam: Alert, Oriented X3, CN II-XII Intact - Psychiatric Psychiatric Exam: Normal Affect - Skin Skin Exam: Warm, Dry - Diagnosis Discharge Problem: Visit for suture removal Infected leg abrasion Qualifiers: Encounter type: subsequent encounter Laterality: right Qualified Code(s): S80.811D - Abrasion, right lower leg, subsequent encounter; L08.9 - Local infection of the skin and subcutaneous tissue, unspecified; L08.9 - Local infection of the skin and subcutaneous tissue, unspecified - Discharge Plan Condition: Stable - Follow ups/Referrals Follow ups/Referrals: MICHELET PULIDO [Primary Care Provider] - 3 days - Instructions
== END 2017-07-18 10:34 | disposition home or self-care (01) ==
LOC: ER 09:45
DX: S80.811D Abrasion, right lower leg, subsequent encounter (principal); X58.XXXD Exposure to other specified factors, subsequent encounter; L08.9 Local infection of the skin and subcutaneous tissue, unspecified; Z48.02 Encounter for removal of sutures
CPT/HCPCS: 99282; 99283